=== PATIENT | male | born 1995 | race Caucasian/White ===

== ENCOUNTER 2025-01-12 20:44 | Emergency (ER) | payer BC ==
[2025-01-12] MEDS ORDERED: Ondansetron PF 4 MG/2 ML Vial ONE (21:20)
== END 2025-01-12 22:17 | disposition home or self-care (01) ==
LOC: ERS 20:44
DX: A05.9 Bacterial foodborne intoxication, unspecified (principal); R11.2 Nausea with vomiting, unspecified
CPT/HCPCS: 96361; 96374; J2405